=== PATIENT | female | born 1965 | race Caucasian/White ===

== ENCOUNTER → 2017-07-11 | Outpatient (CLI) | payer BC | LOC: BRMIMAGING 11:02 | PROVIDERS: ATTEND Internal Medicine | DX: Z12.31 Encounter for screening mammogram for malignant neoplasm of breast (principal) | CPT/HCPCS: G0202 ==

== ENCOUNTER → 2018-08-18 | Outpatient (CLI) | payer BC | LOC: BRMIMAGING 11:05 | PROVIDERS: ATTEND Internal Medicine | DX: Z12.31 Encounter for screening mammogram for malignant neoplasm of breast (principal) ==